=== PATIENT | female | born 1990 | race Caucasian/White ===

== ENCOUNTER 2019-03-15 16:43 | Emergency (ER) | payer MEDICAID, OTHER ==
[~2019-03-15] VITALS: Wt 81.8 kg
[~2019-03-15 16:43] MED LIST: NITR-58 PO
--- NOTE | 2019-03-15 17:09 | EN ---
Date/Time of Note Date/Time of Note DATE: 03/15/19 TIME: 17:07 ER Progress Note 29-year-old female presents with complaints of sharp right lower pelvic pain with nausea and nonbloody diarrhea. No fevers. No urinary symptoms. Last menstrual cycle was a few days ago. No history of same. Medical screening exam initiated labs and imaging tests ordered. Patient will be seen by another provider. SANTOS MCNEILL PA-C Mar 15, 2019 17:09
[2019-03-15] MEDS ORDERED: KETOROLAC 15 MG INJ IV STA (18:31)
[2019-03-15] MEDS ORDERED: SOD CHLORIDE 0.9% 500 ML IV ONE (19:00)
--- NOTE | 2019-03-15 19:57 | ERD ---
ER Documentation Chief Complaint Chief Complaint mid abd pain w n/v/d HPI 29-year-old female presents the emergency department complaining of pelvic pain. Patient states that beginning yesterday she began having significant severe lo wer quadrant pelvic pain associated with nausea, vomiting diarrhea. She reported no fevers or chills. She reported no significant anorexia. She reported no vaginal bleeding. Pain is non-provoked and described as sharp and stabbing. ROS All systems reviewed and are negative except as per history of present illness. Medications Home Meds Active Scripts Nitrofurantoin Monohyd Macrocr* (Macrobid*) 100 Mg Capsr, 100 MG PO BID for 14 Days, CAP Prov:LEONARD BOOGIE 03/15/19 Allergies Allergies: Coded Allergies: No Known Allergy (Unverified , 03/15/19) PMhx/Soc Medical and Surgical Hx: pt denies Medical Hx, pt denies Surgical Hx Hx Alcohol Use: No Hx Substance Use: No Hx Tobacco Use: No Smoking Status: Never smoker Physical Exam Vitals Vital Signs Date Temp Pulse Resp B/P (MAP) Pulse Ox O2 O2 Flow FiO2 Time Delivery Rate 03/15/19 98.6 80 20 116/75 98 16:45 (89) Physical Exam GENERAL: The patient is well developed and appropriate for usual state of health in no apparent distress HEENT: Pupils equal, round, and reactive to light. EOMI. There is no scleral icterus. NECK: C-spine is soft and supple, there is no meningismus. There is no cervical lymphadenopathy. LUNGS: Clear to auscultation bilaterally. There are no rales, wheezes or rhonchi. HEART: Regular rate and rhythm, no murmurs, clicks, rubs or gallops. ABDOMEN: Soft, non-tender, non-distended. There are bowel sounds in all four quadrants. No rebound or guarding. No specific right lower quadrant tenderness. No CVA tenderness EXTREMITIES: There is no peripheral cyanosis or edema. No focal swelling or erythema. NEURO: The patient moves all four extremities with 5/5 strength. Cranial nerves II - XII are intact. Normal gait. Alert and oriented SKIN: There is no apparent rash or petechiae. HEME/LYMPHATIC: There is no evidence of excessive bruising or lymphedema. PSYCHIATRIC: The patient does not appear anxious or depressed. Result Diagram: 03/15/19 1757 03/15/19 175 Results 24 hrs Laboratory Tests Test 03/15/19 17:42 03/15/19 17:57 Urine Test NEGATIVE White Blood Count 8.8 10^3/ul Red Blood Count 5.09 10^6/ul Hemoglobin 12.6 g/dl Hematocrit 40.7 % Mean Corpuscular Volume 80.0 fl Mean Corpuscular Hemoglobin 24.8 pg Mean Corpuscular Hemoglobin Concent 31.0 g/dl Red Cell Distribution Width 15.7 % Platelet Count 271 10^3/UL Mean Platelet Volume 10.7 fl Immature Granulocytes % 0.300 % Neutrophils % 53.0 % Lymphocytes % 38.8 % Monocytes % 5.4 % Eosinophils % 2.2 % Basophils % 0.3 % Nucleated Red Blood Cells % 0.0 /100WBC Immature Granulocytes # 0.030 10^3/ul Neutrophils # 4.6 10^3/ul Lymphocytes # 3.4 10^3/ul Monocytes # 0.5 10^3/ul Eosinophils # 0.2 10^3/ul Basophils # 0.0 10^3/ul Nucleated Red Blood Cells # 0.0 10^3/ul Urine Color YELLOW Urine Clarity CLOUDY Urine pH 6.0 Urine Specific [place] 1.028 Urine Ketones TRACE mg/dL Urine Nitrite NEGATIVE mg/dL Urine Bilirubin NEGATIVE mg/dL Urine Urobilinogen 1+ mg/dL Urine Leukocyte Esterase TRACE Harika/ul Urine Microscopic RBC 5 /HPF Urine Microscopic WBC 18 /HPF Urine Squamous Epithelial Cells MANY /HPF Urine Bacteria FEW /HPF Urine Mucus MANY /HPF Urine Hemoglobin NEGATIVE mg/dL Urine Glucose NEGATIVE mg/dL Urine Total Protein 1+ mg/dl Sodium Level 139 mmol/L Potassium Level 4.0 mmol/L Chloride Level 103 mmol/L Carbon Dioxide Level 28 mmol/L Anion Gap 8 Blood Urea Nitrogen 12 mg/dl Creatinine 0.71 mg/dl Est Glomerular Filtrat Rate mL/min > 60 mL/min Glucose Level 104 mg/dl Calcium Level 9.7 mg/dl Total Bilirubin 0.4 mg/dl Direct Bilirubin 0.00 mg/dl Indirect Bilirubin 0.4 mg/dl Aspartate Amino Transf (AST/SGOT) 19 IU/L Alanine Aminotransferase (ALT/SGPT) 21 IU/L Alkaline Phosphatase 109 IU/L Total Protein 8.4 g/dl Albumin 4.3 g/dl Globulin 4.10 g/dl Albumin/Globulin Ratio 1.04 Lipase 59 U/L Current Medications Medications Dose Sig/Tosha Start Time Status Last (Trade) Ordered Route PRN Stop Time Admin Dose Reason Admin Ketorolac 15 mg ONCE STAT 03/15/19 DC 03/15/19 Tromethamine IV 18:31 19:02 (Toradol) 03/15/19 18:32 Sodium 500 ml @ Q1H ONCE 03/15/19 DC 03/15/19 Chloride 500 mls/hr IV 19:00 19:02 03/15/19 19:59 Procedures/MDM Patient was taken to a room, seen and evaluated. Comfort measures were initiated. Diagnostic tests were ordered and reviewed. RADIOLOGY: Reviewed with the radiologist REEVALUATION: Upon reevaluation, patient appeared to be nontoxic. 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 Differential diagnosis entertained was broad and potential high acuity including the possibility of appendicitis. CT scan demonstrates no evidence of appendicitis. At this time, patient's white blood cell count is reassuring. She has evidence of urinary tract infection with no evidence of sepsis or pyelonephritis. Her pelvic ultrasound does not demonstrate significant gynecologic concerns Departure Diagnosis: Primary Impression: UTI (urinary tract infection) Condition: Stable LEONARD BOOGIE Mar 15, 2019 19:57
[2019-03-15] MEDS ORDERED: morphine 2 MG INJ IV STA (20:07)
[2019-03-15] MEDS ORDERED: CEFTRIAXONE 1 GM/50 ML (PMX) 50 ML IVPB ONE (20:30)
[2019-03-15 22:38] VITALS: BP 111/75; PULSE 61; RESP 18
== END 2019-03-15 22:39 | disposition home or self-care (01) ==
LOC: FTE 16:43
DX: N39.0 Urinary tract infection, site not specified (principal)
CPT/HCPCS: 74176; 76856; 80053; 81001; 83690; 84703; 85025; 96361; 96365; 96375; J0696; J1885; J2270; J7040; Z7502